=== PATIENT | male | born 2000 | race Two or more races ===

== ENCOUNTER 2022-01-31 08:52 | Emergency (ER) | payer OTHER ==
[2022-01-31 09:06] VITALS: O2SAT 100
--- NOTE | 2022-01-31 10:56 | ERPHSYRPT ---
- History of Present Illness Time Seen by Provider: 01/31/22 09:28 Source: patient Exam Limitations: no limitations Patient Subjective Stated Complaint: C/O left earache X 2 days Triage Nursing Assessment: Patient ambulated back to ED with a cotton ball in his left ear. He is alert and oriented. No SOB. Some trouble hearing from left ear. Ear canal red. Physician History: 21 years old presented in the ER with chief complaint of decreased hearing from left ear for 1 week. He has been cleaning it with Q-tips and putting peroxide with no significant relief. Now complaining of some discomfort. No discharge. No history of otitis media and in the recent past. No fever or chills reported. Timing/Duration: gradual onset, weeks Severity: mild, moderate ENT Location: ear (L) Prearrival Treatment: over the counter meds Associated Symptoms: ear pain (L), change in hearing, No ear drainage, No facial pain/swelling, No nasal congestion/drainage, No poor fluid intake, No poor solids intake, No ringing of ears, No swollen glands, No sinus infection, No sore throat, No difficulty swallowing, No voice change Allergies/Adverse Reactions: No Known Drug Allergies Allergy (Verified 01/31/22 08:58) Home Medications: No Reportable Medications [No Reported Medications] 01/31/22 [History] Hx Tetanus, Diphtheria Vaccination/Date Given: Yes Hx Influenza Vaccination/Date Given: No Hx Pneumococcal Vaccination/Date Given: No Immunizations Up to Date: Yes Travel Risk - International Travel Have you traveled outside of the country in past 3 weeks: No - Coronavirus Screening Are you exhibiting any of the following symptoms?: No Close contact with a COVID-19 positive Pt in past 14-21 Days: No - Vaccine Status Have you recieved a Covid-19 vaccination: No - Review of Systems Constitutional: No Symptoms Eyes: No Symptoms Ears, Nose, & Throat: Ear Pain Respiratory: No Symptoms Cardiac: No Symptoms Abdominal/Gastrointestinal: No Symptoms Musculoskeletal: No Symptoms Skin: No Symptoms Neurological: No Symptoms Endocrine: No Symptoms Hematologic/Lymphatic: No Symptoms Immunological/Allergic: No Symptoms - Past Medical History Pertinent Past Medical History: No - Past Surgical History Past Surgical History: Yes Other Surgical History: Tubes in ears as a child - Social History Smoking Status: Never smoker Exposure to second hand smoke: No Drug Use: none Patient Lives Alone: No - Nursing Vital Signs Nursing Vital Signs: Initial Vital Signs Temperature 97.8 F 01/31/22 08:59 Pulse Rate 80 01/31/22 08:59 Respiratory Rate 17 01/31/22 08:59 Blood Pressure 109/67 01/31/22 08:59 O2 Sat by Pulse Oximetry 100 01/31/22 08:59 Pain Scale Pain Intensity 0 - Physical Exam General Appearance: no apparent distress, alert Eye Exam: bilateral eye: normal inspection, PERRL, EOMI Ear Exam: right ear: canal normal, TM normal, left ear: swelling (Canal with dark impacted cerumen), bilateral ear: auricle normal Nasal Exam: normal inspection Throat Exam: normal, pharynx normal Neck Exam: normal inspection, non-tender, supple, full range of motion Cardiovascular/Respiratory Exam: normal breath sounds, regular rate/rhythm Neurologic Exam: alert, oriented x 3, cooperative, 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 Time 10:30 AM. Left ear is flushed with warm water, impacted wax is removed. TM normal. Mild irritation and swelling of canal. - Progress Progress: improved Progress Note: 01/31/22 10:55 Left ear is irrigated and wax is removed, recommended Tylenol/ibuprofen as needed and avoiding Q-tips. Outpatient follow-up. Counseled pt/family regarding: diagnosis, need for follow-up - Departure Departure Disposition: Home Clinical Impression: Impacted ear wax Condition: Stable Critical Care Time: No Referrals: [facility] [employer] [Primary Care Provider] - Follow Up with PCP/3 days Instructions: Ear Wax Impaction (DC) Additional Instructions: Do not use Q-tips. Follow-up with primary care for reevaluation. Take Tylenol/ibuprofen as needed for pain.
[2022-01-31 10:57] VITALS: BP 110/70; PULSE 70
== END 2022-01-31 11:00 | disposition home or self-care (01) ==
LOC: ED 08:52
DX: H61.22 Impacted cerumen, left ear (principal); H92.02 Otalgia, left ear; Z28.310 Unvaccinated for COVID-19
CPT/HCPCS: 69210; 99281